=== PATIENT | male | born 1940 | race Caucasian/White ===

== ENCOUNTER 2019-12-16 12:34 | Inpatient (IN) | payer MEDICARE, OTHER ==
[~2019-12-16] VITALS: Ht 185.4 cm; Wt 102.0 kg
[2019-12-16] MEDS ORDERED: SODIUM CHLORIDE 0.9% 1,000 ML IVB ONE (13:31)
[2019-12-16 13:56] LABS: Basophils # (auto) 0 10 ^3/uL (0-0.2); Basophils % (auto) 0.5 % (0.0-2.0); Eosinophils # (auto) 0 10 ^3/uL (0-0.8); Eosinophils % (auto) 0.6 % (0.0-7.0); Hematocrit 47.7 % (41.0-53.0); Hemoglobin 15.7 g/dL (13.5-17.5); Lymphocytes % (auto) 12.9 % (10.0-50.0); Mean Corpuscular Hemoglobin 31.1 pg (28.0-32.0); Mean Corpuscular Hgb Conc. 32.9 g/dL (32.0-36.0); Mean Corpuscular Volume 94.4 fL (80.0-100.0); Monocytes # (auto) 0.4 10 ^3/uL (0-1.3); Monocytes % (auto) 5.5 % (0.0-12.0); Neutrophils % (auto) 80.5 % (37.0-80.0); Nucleated Red Blood Cells % 0.1 %; Platelet Count (auto) 226 10^3/uL (140-450); Red Blood Cells 5.06 10^6/uL (4.5-5.90); Red Cell Distribution Width 13.3 % (11.8-14.3); White Blood Cell 7.4 10^3/uL (4.4-10.8)
[2019-12-16 14:16] LABS: Alanine Aminotransferase 43 U/L (16-61); Albumin 3.7 g/dL (3.4-5.0); Anion Gap 8 (5-15); Blood Urea Nitrogen 16 mg/dL (7-18); Calcium 8.4 mg/dL (8.5-10.1); Carbon Dioxide 23 mmol/L (21-32); Chloride 105 mmol/L (98-107); Glucose 114 mg/dL (74-106); Magnesium 2.1 mg/dL (1.6-2.6); Potassium 4.4 mmol/L (3.5-5.1); Sodium 136 mmol/L (136-145)
[2019-12-16 14:22] LABS: Alkaline Phosphatase 43 U/L (45-117); Aspartate Aminotransferase 37 U/L (15-37); BUN/Creatinine Ratio 15.7; Bilirubin, Total 0.4 mg/dL (0.2-1.0); GFR African American 91 mL/min; GFR Non-African American 75 mL/min; Total Protein 7.5 g/dL (6.4-8.2)
[2019-12-16 15:21] LABS: Urine Bacteria NONE SEEN /hpf (None Seen); Urine Blood Negative /uL (Negative); Urine Hyaline Cast MOD /lpf (0 - 2); Urine Mucus FEW (None Seen); Urine Specific Gravity 1.027 (1.001-1.035); Urine WBC 3 /hpf (0 - 3)
[2019-12-16] MEDS ORDERED: NITROGLYCERIN 0.4 MG SL TAB SL PRN (16:15)
[2019-12-16] MEDS ORDERED: MORPHINE SULF INJ 2 MG/ML SYRINGE 1ML IV PRN ×2 (16:15)
[2019-12-16] MEDS ORDERED: METOCLOPRAMIDE HCL 5MG/ml INJ 2ml VIAL IV PRN (16:15)
[2019-12-16] MEDS ORDERED: LORazepam 0.5 MG TAB PO PRN (16:15)
[2019-12-16] MEDS ORDERED: ALUM & MAG HYDROX-SIMETH LIQ(MAALOX) 30 ML PO PRN (16:15)
[2019-12-16] MEDS ORDERED: DOCUSATE SOD 100 MG CAP PO PRN (16:15)
[2019-12-16] MEDS: SODIUM CHLORIDE 0.9% 1,000 ML IV SCH (16:35)
[2019-12-16] MEDS ORDERED: CYANOCOBALAMIN (B-12) 1000 MCG/1 ML VIAL IM ONE (18:30)
[2019-12-16] MEDS ORDERED: FAMOTIDINE 20 MG TAB PO ONE (18:30)
[2019-12-16] MEDS: HYDROcodone-ACET 5/325MG TAB PO PRN ×2 (18:40→23:51)
[2019-12-16] MEDS ORDERED: CALCIUM W/VIT D (600MG/400IU) TAB PO ONE (18:45)
[2019-12-16] MEDS ORDERED: LORazepam 2MG/ML-1ML VIAL IV PRN (22:00)
[2019-12-16] MEDS ORDERED: ATORVASTATIN 20 MG TAB PO SCH (22:00)
[2019-12-16] MEDS: FAMOTIDINE 20 MG TAB PO SCH (22:00)
[2019-12-16 22:45] VITALS: BP 150/90
[2019-12-16] MEDS ORDERED: ZOLPIDEM TARTRATE 5 MG TAB PO PRN (22:45)
[2019-12-16 23:19] VITALS: BP 161/99
[2019-12-17] VITALS: BP 161/99
[2019-12-17 02:23] VITALS: BP 161/99
[2019-12-17] MEDS: HYDROcodone-ACET 5/325MG TAB PO PRN (03:53)
[2019-12-17 05:13] VITALS: BP 140/93
[2019-12-17 06:13] LABS: Basophils # (auto) 0 10 ^3/uL (0-0.2); Basophils % (auto) 0.5 % (0.0-2.0); Eosinophils # (auto) 0.1 10 ^3/uL (0-0.8); Eosinophils % (auto) 1.1 % (0.0-7.0); Hematocrit 46.5 % (41.0-53.0); Hemoglobin 15.9 g/dL (13.5-17.5); Lymphocytes # (auto) 2.4 10 ^3/uL (0.4-5.4); Lymphocytes % (auto) 32.2 % (10.0-50.0); Mean Corpuscular Hemoglobin 32.2 pg (28.0-32.0); Mean Corpuscular Hgb Conc. 34.1 g/dL (32.0-36.0); Mean Corpuscular Volume 94.4 fL (80.0-100.0); Monocytes # (auto) 0.8 10 ^3/uL (0-1.3); Monocytes % (auto) 10.2 % (0.0-12.0); Neutrophils # (auto) 4.2 10 ^3/uL (1.6-8.6); Nucleated Red Blood Cells % 0.1 %; Platelet Count (auto) 197 10^3/uL (140-450); Red Blood Cells 4.93 10^6/uL (4.5-5.90); Red Cell Distribution Width 12.7 % (11.8-14.3); White Blood Cell 7.4 10^3/uL (4.4-10.8)
[2019-12-17 06:23] LABS: Potassium 3.9 mmol/L (3.5-5.1)
[2019-12-17 06:24] LABS: INR 1.08 (0.9-1.15); Partial Thromboplastin Time 26.6 sec (23.64-32.05)
[2019-12-17 06:34] LABS: Albumin 3.7 g/dL (3.4-5.0); BUN/Creatinine Ratio 11.5; Bilirubin, Total 1.1 mg/dL (0.2-1.0); Phosphorus 2.6 mg/dL (2.5-4.90); Total Protein 7.4 g/dL (6.4-8.2)
[2019-12-17 06:47] LABS: Cholesterol 159 mg/dL (< 200)
[2019-12-17 06:49] LABS: HDL Cholesterol 51 mg/dL (40-59); LDL Cholesterol 86 mg/dL (< 100); Triglycerides 145 mg/dL (< 150)
[2019-12-17] MEDS ORDERED: LEVOTHYROXINE SODIUM 25 MCG TAB PO SCH (07:00)
[2019-12-17] MEDS ORDERED: CALCIUM W/VIT D (600MG/400IU) TAB PO SCH (08:00)
[2019-12-17] MEDS: SODIUM CHLORIDE 0.9% 1,000 ML IV SCH (08:42)
[2019-12-17 09:10] VITALS: BP 161/97
[2019-12-17] MEDS: FAMOTIDINE 20 MG TAB PO SCH (09:25)
[2019-12-17] MEDS ORDERED: LISINOPRIL 20 MG TAB PO SCH (10:00)
[2019-12-17] MEDS ORDERED: ASPirin 81 mg TAB PO SCH (10:00)
[2019-12-17] MEDS ORDERED: ENOXAPARIN SOD 40 MG/0.4 ML SYRINGE SC SCH (10:00)
[2019-12-17 12:20] VITALS: BP 158/97
[2019-12-17 13:33] VITALS: BP 158/97
== END 2019-12-17 13:45 | disposition home or self-care (01) | DRG 149 ==
LOC: ER 12:34 → TELE 12:35 → TELE-CENTR 19:45
PROVIDERS: ADMIT Hospitalist; ATTEND Hospitalist
DX: R42 Dizziness and giddiness (principal); I16.9 Hypertensive crisis, unspecified; M47.812 Spondylosis without myelopathy or radiculopathy, cervical region; I10 Essential (primary) hypertension; I95.1 Orthostatic hypotension; M19.90 Unspecified osteoarthritis, unspecified site; Z96.611 Presence of right artificial shoulder joint; Z96.612 Presence of left artificial shoulder joint; E66.9 Obesity, unspecified; G47.33 Obstructive sleep apnea (adult) (pediatric); I67.2 Cerebral atherosclerosis; H57.02 Anisocoria; T42.8X5A Adverse effect of antiparkinsonism drugs and other central muscle-tone depressants, initial encounter; Z85.46 Personal history of malignant neoplasm of prostate; Y92.89 Other specified places as the place of occurrence of the external cause; Z79.899 Other long term (current) drug therapy; Z68.29 Body mass index [BMI] 29.0-29.9, adult
CPT/HCPCS: 36415; 70450; 70551; 71045; 71250; 72141; 80053; 80061; 81001; 83036; 83735; 83880; 84100; 84484; 85025; 85610; 85730; 93005; 93886; 94660; 96361; 96365; 97163; G0378